=== PATIENT | male | born 1965 | race African-American/Black ===

== ENCOUNTER 2019-03-30 13:39 | Emergency (ER) | payer SELFPAY ==
[~2019-03-30] VITALS: Ht 180.3 cm; Wt 74.8 kg
--- NOTE | 2019-03-30 13:59 | NUR ---
PT. CAME TO ER W/ C/O OF STOMACH PAIN. PT STATES THAT LAST NGIHT HE HAD BODYACHES, CHILLS, AND DENIES FEVER. PT PLACED IN BED 4. AAOX4. NOT IN ANY DISTRESS. NO SOB. AWAITING MD RITTER. WILL CONTINUE TO MONITOR.
[2019-03-30 14:03] LABS: BASOPHILS # (AUTO) 0.1 /CMM (0.0-0.2); BASOPHILS % (AUTO) 1.8 % (0.0-2.0); EOSINOPHILS % (AUTO) 0.6 % (0.0-6.0); HEMATOCRIT 40 % (39-51); HEMOGLOBIN 12.8 g/dL (13.5-17.5); LYMPHOCYTES # (AUTO) 1.1 /CMM (0.8-4.8); LYMPHOCYTES % (AUTO) 25.1 % (20.0-44.0); MEAN CORPUSCULAR HGB CONC 32 g/dl (31.0-36.0); MEAN CORPUSCULAR VOLUME 81 fL (80-96); MONOCYTES # (AUTO) 0.4 /CMM (0.1-1.30); MONOCYTES % (AUTO) 9.5 % (2.0-12.0); NEUTROPHILS # (AUTO) 2.8 /CMM (1.8-8.9); PLATELET COUNT (AUTO) 218 /CMM (150-450); WHITE BLOOD COUNT (AUTO) 4.5 K/uL (4.3-11.0)
[2019-03-30 14:10] LABS: CREATININE 0.9 mg/dL (0.6-1.3); POTASSIUM 3.8 mmol/L (3.5-5.1)
[2019-03-30 14:15] LABS: BILIRUBIN,DIRECT 0.2 mg/dL (0.0-0.2); BILIRUBIN,TOTAL 1.1 mg/dL (0.2-1.0)
--- NOTE | 2019-03-30 16:43 | NUR ---
Patient discharged to home in stable condition. Written and verbal after care instructions given. Patient verbalizes understanding of instruction.
[2019-03-30 16:49] VITALS: BP 128/75
== END 2019-03-30 16:49 | disposition home or self-care (01) ==
LOC: ER 13:42
DX: B34.9 Viral infection, unspecified (principal); Z60.2 Problems related to living alone
CPT/HCPCS: 36415; 80048-TC; 80076-TC; 83690-TC; 85025-TC

== ENCOUNTER 2024-01-18 07:19 | Emergency (ER) | payer OTHER ==
[~2024-01-18] VITALS: Ht 177.8 cm; Wt 95.3 kg
[2024-01-18 07:59] LABS: BASOPHILS # (AUTO) 0.1 K/uL (0.0-0.2); BASOPHILS % (AUTO) 0.7 % (0.0-2.0); EOSINOPHILS # (AUTO) 0.1 K/uL (0.0-0.7); EOSINOPHILS % (AUTO) 0.9 % (0.0-6.0); HEMATOCRIT 45 % (39-51); HEMOGLOBIN 14.7 g/dL (13.5-17.5); LYMPHOCYTES # (AUTO) 1.6 K/uL (0.8-4.8); LYMPHOCYTES % (AUTO) 20.7 % (20.0-44.0); MEAN CORPUSCULAR HEMOGLOBIN 26 PG (26.0-33.0); MEAN CORPUSCULAR HGB CONC 33 g/dl (31.0-36.0); MEAN CORPUSCULAR VOLUME 80 fL (80-96); MONOCYTES # (AUTO) 0.9 K/uL (0.1-1.30); MONOCYTES % (AUTO) 10.9 % (2.0-12.0); NEUTROPHILS # (AUTO) 5.2 K/uL (1.8-8.9); NEUTROPHILS % (AUTO) 66.8 % (43.0-81.0); PLATELET COUNT (AUTO) 201 K/uL (150-450); RED BLOOD CELL COUNT(AUTO) 5.59 MIL/uL (4.5-6.0); RED CELL DISTRIBUTION WIDTH 13.1 % (11.5-15.0); WHITE BLOOD COUNT (AUTO) 7.8 K/uL (4.3-11.0)
[2024-01-18] MEDS ORDERED: IBUP-1955 PO (08:01)
[2024-01-18] MEDS ORDERED: KETOROLAC TROMETHAMINE 15 MG/ML VIAL ONE (08:08)
[2024-01-18 08:28] LABS: CALCIUM, SERUM 9.8 mg/dL (8.5-10.1); CARBON DIOXIDE 25 mmol/L (21-32); CHLORIDE 100 mmol/L (98-107); GLUCOSE 119 mg/dL (74-106); POTASSIUM 3.3 mmol/L (3.5-5.1); SODIUM SERUM 135 mmol/L (136-145); UREA NITROGEN, BLOOD 19 mg/dL (7-18)
[2024-01-18] MEDS: IV NS 0.9% 1,000 ML BAG IV ONE (08:29)
[2024-01-18] MEDS: KETOROLAC TROMETHAMINE 15 MG/ML VIAL IV ONE (08:30)
[2024-01-18 09:44] VITALS: BP 142/86; TEMP 98; O2SAT 98
[2024-01-18 10:02] LABS: AMPHETAMINE, URINE POSITIVE (NEGATIVE); BARBITURATE, URINE NEGATIVE (NEGATIVE); BENZODIAZEPINE, URINE NEGATIVE (NEGATIVE); CANNABINOID, URINE NEGATIVE (NEGATIVE); COCCAINE, URINE NEGATIVE (NEGATIVE); OPIATE, URINE NEGATIVE (NEGATIVE); PHENCYCLIDINE SCREEN,URINE NEGATIVE (NEGATIVE)
== END 2024-01-18 09:45 | disposition home or self-care (01) ==
LOC: ER 07:42
DX: R07.89 Other chest pain (principal); R00.0 Tachycardia, unspecified; F17.200 Nicotine dependence, unspecified, uncomplicated; Z79.1 Long term (current) use of non-steroidal anti-inflammatories (NSAID); Z60.2 Problems related to living alone; V89.2XXA Person injured in unspecified motor-vehicle accident, traffic, initial encounter; Y93.89 Activity, other specified; Y92.89 Other specified places as the place of occurrence of the external cause; Y99.8 Other external cause status
CPT/HCPCS: 99285; 96374; 96361; 93005 ×2; 71045; 85025; 80048; 36415; 84484 ×2; 80320; 80307; J7030; J1885; G0480

== ENCOUNTER 2024-01-18 16:44 | Emergency (ER) | payer OTHER ==
[~2024-01-18] VITALS: Ht 177.8 cm; Wt 90.7 kg
[~2024-01-18 16:44] MED LIST: IBUP-1955 PO
[2024-01-18] MEDS: IBUPROFEN 600 MG TABLET PO ONE (18:03)
[2024-01-18 18:23] VITALS: BP 121/81; TEMP 98; O2SAT 100
== END 2024-01-18 18:23 | disposition home or self-care (01) ==
LOC: ER 16:55
DX: R07.81 Pleurodynia (principal); F17.200 Nicotine dependence, unspecified, uncomplicated; Z79.1 Long term (current) use of non-steroidal anti-inflammatories (NSAID); Z60.2 Problems related to living alone; Z88.1 Allergy status to other antibiotic agents

== ENCOUNTER 2024-01-18 23:20 | Emergency (ER) | payer OTHER ==
[~2024-01-18] VITALS: Ht 177.8 cm; Wt 90.7 kg
[2024-01-18 23:24] VITALS: BP 131/68; TEMP 98.2; O2SAT 98
== END 2024-01-19 04:10 | disposition left against medical advice (07) ==
LOC: ER 23:29
DX: T50.901A Poisoning by unspecified drugs, medicaments and biological substances, accidental (unintentional), initial encounter (principal); Z53.21 Procedure and treatment not carried out due to patient leaving prior to being seen by health care provider; Y92.89 Other specified places as the place of occurrence of the external cause